=== PATIENT | female | born 1985 | race Caucasian/White ===

== ENCOUNTER 2019-06-21 21:38 | Emergency (ER) | payer MEDICAID ==
[~2019-06-21] VITALS: Ht 165.1 cm; Wt 86.4 kg
[2019-06-21 21:51] VITALS: Ht 165.1 cm; Wt 86.4 kg
[2019-06-21] MEDS ORDERED: LISINOPRIL10 MG PO (21:52)
[2019-06-21] MEDS ORDERED: BUPROPION XL300 MG PO (21:52)
[2019-06-21] MEDS ORDERED: ROBAXIN500 MG PO (23:30)
[2019-06-21] MEDS ORDERED: TORADOL10 MG PO (23:30)
[2019-06-22 00:04] VITALS: BP 125/84
== END 2019-06-22 00:04 | disposition home or self-care (01) ==
LOC: D.ER 21:38
DX: S16.1XXA Strain of muscle, fascia and tendon at neck level, initial encounter (principal); V49.40XA Driver injured in collision with unspecified motor vehicles in traffic accident, initial encounter; F17.200 Nicotine dependence, unspecified, uncomplicated; I10 Essential (primary) hypertension

== ENCOUNTER 2019-07-02 11:12 | Emergency (ER) | payer MEDICAID ==
[~2019-07-02] VITALS: Ht 165.1 cm; Wt 86.4 kg
[~2019-07-02 11:12] MED LIST: BUPROPION XL300 MG PO; LISINOPRIL10 MG PO; ROBAXIN500 MG PO; TORADOL10 MG PO
[2019-07-02 11:19] VITALS: Ht 165.1 cm; Wt 86.4 kg
[2019-07-02 11:35] VITALS: BP 126/88
[2019-07-02 11:59] LABS: BASOPHILS 0.2 % (0-2); EOSINOPHILS 0.4 % (0-7); HEMATOCRIT 40.7 % (36.0-48.0); IMMATURE GRANULOCYTES 0.1 % (0-5); LYMPHOCYTES 21.2 % (15-50); MCH 30.8 pg (26.0-34.0); MCHC 34.4 g/dL (31.0-37.0); MCV 89.6 fL (80.0-100.0); MEAN PLATELET VOLUME 13.8 fL (7.4-10.4); MONOCYTES 8.1 % (2-11); RBC 4.54 10x6/uL (4.00-5.40); RDW 13.2 % (11.5-14.5); WBC 9.4 10x3/uL (4.8-10.8)
[2019-07-02 12:01] LABS: ALBUMIN 4.2 g/dL (3.4-5.0); ANION GAP 13.4 mmol/L (8-16); BILIRUBIN - TOTAL 0.54 mg/dL (0.2-1.3); CALCIUM 9.7 mg/dL (8.5-10.1); CARBON DIOXIDE 26.4 mmol/L (21.0-32.0); POTASSIUM - SERUM 3.8 mmol/L (3.5-5.1); PROTEIN - SERUM 8.6 g/dL (6.4-8.2)
[2019-07-02 12:02] LABS: HCG SERUM NEGATIVE (NEGATIVE)
[2019-07-02 12:08] LABS: APPEARANCE SL CLDY (CLEAR); BACTERIA MANY /hpf (NONE SEEN); BILIRUBIN NEGATIVE (NEGATIVE); COLOR YELLOW (YELLOW); GLUCOSE NEGATIVE (NEGATIVE); KETONE NEGATIVE (NEGATIVE); MUCUS <1+ /lpf (NONE SEEN); NITRITE NEGATIVE (NEGATIVE); PROTEIN NEGATIVE (NEGATIVE); RED CELLS - URINE OCC /hpf (0-5); WHITE CELLS - URINE 0-5 /hpf (0-5)
[2019-07-02 12:08] LABS: PLATELET COUNT 215 10x3/uL (130-400)
[2019-07-02] MEDS ORDERED: FLAGYL500 MG PO (13:08)
[2019-07-02] MEDS ORDERED: ZOFRAN8 MG PO (13:08)
[2019-07-02] MEDS ORDERED: TORADOL10 MG PO (13:08)
== END 2019-07-02 13:26 | disposition home or self-care (01) ==
LOC: D.ER 11:12
PROVIDERS: Emergency Medicine
DX: M54.5 Low back pain (principal); N76.0 Acute vaginitis; B96.89 Other specified bacterial agents as the cause of diseases classified elsewhere; R50.9 Fever, unspecified; R11.2 Nausea with vomiting, unspecified